=== PATIENT | male | born 1980 | race Hispanic/Latino ===

== ENCOUNTER 2017-06-12 00:36 | Emergency (ER) | payer BC, SELFPAY ==
[2017-06-12 01:03] LABS: #Basophils 0.2 thou/uL (0.0-0.2); #Eosinphils 0.4 thou/uL (0.0-0.7); #Lymphocytes 4.7 thou/uL (1.20-3.40); #Monocytes 0.8 thou/uL (0.11-0.59); #Neutrophils 6.7 thou/uL (1.40-6.50); %Basophils 1.2 % (0.0-1.0); %Eosinophils 3.5 % (0.0-10.0); %Lymphocytes 36.9 % (21.0-51.0); %Monocytes 6.3 % (0.0-10.0); %Neutrophils 52.1 % (42.0-75.0); Hemoglobin 15.6 g/dL (14.0-18.0); Mean Corpuscular HGB CONC 34.5 g/dL (32.0-36.0); Mean Corpuscular Hemoglobin 31.9 pg (27.0-31.0); Mean Corpuscular Volume 92.5 fl (80.0-94.0); Mean Platelet Volume 8.4 fL (7.4-10.4); Platelet Count 277 thou/uL (130-400); RBC Distribution Width 12.1 % (11.5-14.5); Red Blood Cell (RBC) Count 4.88 mill/uL (4.70-6.10); White Blood Cell (WBC) Count 12.8 thou/uL (4.8-10.8)
[2017-06-12 01:25] LABS: ALT (SGPT) 51 U/L (8-55); AST (SGOT) 26 U/L (5-34); Albumin 4.2 g/dL (3.5-5.0); Alkaline Phosphatase 80 U/L (40-150); Anion Gap 11 mmol/L (10-20); BUN (Urea Nitrogen) 13 mg/dL (8.9-20.6); Bilirubin, Total 0.6 mg/dL (0.2-1.2); CK (CPK) 307 U/L (30-200); Calc. Creatinine Clearance 0 mL/min (70-130); Calcium 9.6 mg/dL (7.8-10.44); Carbon Dioxide 30 mmol/L (22-29); Chloride 104 mmol/L (98-107); Estimated GFR-MDRD Greater than 90; Globulin 3.5 g/dL (2.4-3.5); Glucose 103 mg/dL (70-105); Potassium 4.5 mmol/L (3.5-5.1); Protein, Total 7.7 g/dL (6.0-8.3); Sodium 140 mmol/L (136-145)
[2017-06-12 01:27] LABS: CKMB 3.8 ng/mL (0-6.6); Troponin I Less than 0.010 ng/mL (< 0.028)
[2017-06-12 03:26] LABS: Troponin I Less than 0.010 ng/mL (< 0.028)
--- NOTE | 2017-06-12 08:21 | RAD ---
CHEST PA AND LATERAL: Date: 06/12/17 HISTORY: 37-year-old male with chest pain for 1 hour. COMPARISON: 04/01/11. FINDINGS/IMPRESSION: Heart size is normal. The lungs are clear. No pneumonia, edema, pleural effusion, or other acute proc ess. No acute intrathoracic disease. POS: [facility]
== END 2017-06-12 03:45 | disposition home or self-care (01) ==
LOC: ERS 00:36
DX: R07.89 Other chest pain (principal)
CPT/HCPCS: 36415; 71046; 80053; 82553; 84484; 85025; 93005

== ENCOUNTER 2020-02-16 21:01 | Inpatient (IN) | payer OTHER, SELFPAY ==
[2020-02-16 22:10] LABS: Bacteria/HPF None Seen HPF (None Seen); Bilirubin Negative (Negative); Blood, Urine 1+ (Negative); Clarity Turbid (Clear); Glucose, Urine (Dipstick) Normal (Negative); Ketone, Urine 10 mg/dL (Negative); Leukocyte 25 Leu/uL (Negative); Nitrite Negative (Negative); Protein, Urine (Dipstick) 100 mg/dL (Neg-Trace); RBC/HPF 0-3 HPF (0-3); Specific Gravity, Urine 1.036 (1.002-1.036); Squamous Epithelial 0-3 HPF (0-3); pH, Urine 5.5 (5.0-9.0)
[2020-02-16] MEDS ORDERED: Vancomycin 1 GM/200 ML BAG ONE (23:34)
[2020-02-16] MEDS ORDERED: Cefepime 2 GM VIAL ONE (23:34)
[2020-02-16 23:56] LABS: Hemoglobin 14.1 g/dL (14.0-18.0); Mean Corpuscular HGB CONC 33.4 g/dL (32.0-36.0); Mean Corpuscular Hemoglobin 30.8 pg (27.0-31.0); Mean Platelet Volume 9.7 fL (7.4-10.4); Platelet Count 204 thou/uL (130-400); RBC Distribution Width 12.2 % (11.5-14.5); Red Blood Cell (RBC) Count 4.57 mill/uL (4.70-6.10); White Blood Cell (WBC) Count 31.1 thou/uL (4.8-10.8)
[2020-02-17 00:05] LABS: ALT (SGPT) 30 U/L (8-55); AST (SGOT) 15 U/L (5-34); Albumin 3.5 g/dL (3.5-5.0); Alkaline Phosphatase 72 U/L (40-110); Anion Gap 16 mmol/L (10-20); BUN (Urea Nitrogen) 18 mg/dL (8.9-20.6); Bilirubin, Total 0.9 mg/dL (0.2-1.2); Calc. Creatinine Clearance 0 mL/min (70-130); Calcium 8.4 mg/dL (7.8-10.44); Carbon Dioxide 20 mmol/L (22-29); Chloride 104 mmol/L (98-107); Estimated GFR-MDRD 51; Globulin 3.5 g/dL (2.4-3.5); Glucose 121 mg/dL (70-105); Sodium 136 mmol/L (136-145)
[2020-02-17 00:26] LABS: Band 20 % (5-11); Lymphocytes 9 % (21-51); MDiff Complete? YES; Monocytes 5 % (0-10); Neutrophil 65 % (42-75); Platelet Morphology Comment Appears Adequate; RBC Morphology Normal; Reactive Lymphocytes 1 % (0-10); Vacuoles SLIGHT
[2020-02-17] MEDS ORDERED: Ondansetron PF 4 MG/2 ML Vial IVP PRN (01:27)
--- NOTE | 2020-02-17 01:33 | PDOC.HHP ---
Hospitalist HPI - History of Present Illness Painful swollen scrotum History of Present Illness: 40-year-old morbidly obese gentleman with a history of borderline diabetes presented to the emergency department with a complaint of painful swelling of his scrotum. Patient reports rapid swelling, and redness of his scrotum over a period of 2 days. He also reports fever and chills and rigors for which he took ibuprofen. He denies any skin cut or scratches which could be a source of infection. He also denied any penile discharge or dysuria. Ultrasound of the scrotum done in the ED final result is pending. Preliminary suggests scrotal swelling and normal looking testis. Blood work in the emergency department demonstrated severe leukocytosis. Patient meets criteria for sepsis with tachycardia and leukocytosis. ED Course: He was given a shot of IV cefepime and vancomycin in the ED. patient is admitted for further management. Hospitalist ROS - Review of Systems Other: Except as documented, all other systems reviewed and negative. - Medication Medications: Medication Instructions Recorded Confirmed Type Ibuprofen 200 mg PO Q6HR PRN 02/17/20 02/17/20 History Hospitalist History - Past Medical History Other Medical History: Borderline diabetes. - Past Surgical History Other Surgical History: Knee meniscus repair, vasectomy. - Family History Family History: reports: diabetes mellitus (Mother) - Social History Smoking Status: Never smoker Alcohol: reports: None Drugs: reports: none Living Situation: With Family - Exam General Appearance: NAD, awake alert General - other findings: Morbidly obese Eye: PERRL, anicteric sclera ENT: normocephalic atraumatic, no oropharyngeal lesions, moist mucosa Neck: supple, symmetric, no JVD, no thyromegaly Heart: RRR (Tachycardic.), no murmur, no gallops Respiratory: CTAB, no wheezes, no rales, no ronchi Gastrointestinal: soft, non-tender, non-distended, normal bowel sounds, no hepatomegaly, no splenomegaly Extremities: no cyanosis, no edema Skin: normal turgor, no rashes Neurological: cranial nerve grossly intact, no weakness, no focal deficits Musculoskeletal: normal tone, no muscle wasting (Genitourinary: Swollen, edematous and erythematous scrotum.) Hospitalist Results - Labs Result Diagrams: 02/17/20 05:57 02/16/20 23:35 Lab results: WBC 31.1 thou/uL (4.8-10.8) H 02/16/20 23:35 Hgb 14.1 g/dL (14.0-18.0) 02/16/20 23:35 Hct 42.1 % (42.0-52.0) 02/16/20 23:35 MCV 92.0 fL (78.0-98.0) 02/16/20 23:35 Plt Count 204 thou/uL (130-400) 02/16/20 23:35 Band Neuts % (Manual) 20 % (5-11) H 02/16/20 23:35 Sodium 136 mmol/L (136-145) 02/16/20 23:35 Potassium 4.0 mmol/L (3.5-5.1) 02/16/20 23:35 Chloride 104 mmol/L (98-107) 02/16/20 23:35 Carbon Dioxide 20 mmol/L (22-29) L 02/16/20 23:35 BUN 18 mg/dL (8.9-20.6) 02/16/20 23:35 Creatinine 1.51 mg/dL (0.7-1.3) H 02/16/20 23:35 Glucose 121 mg/dL (70-105) H 02/16/20 23:35 Lactic Acid 1.4 mmol/L (0.5-2.2) 02/16/20 23:35 Calcium 8.4 mg/dL (7.8-10.44) 02/16/20 23:35 Total Bilirubin 0.9 mg/dL (0.2-1.2) 02/16/20 23:35 AST 15 U/L (5-34) 02/16/20 23:35 ALT 30 U/L (8-55) 02/16/20 23:35 Alkaline Phosphatase 72 U/L (40-110) 02/16/20 23:35 Serum Total Protein 7.0 g/dL (6.0-8.3) 02/16/20 23:35 Albumin 3.5 g/dL (3.5-5.0) 02/16/20 23:35 Urine Ketones 10 mg/dL (Negative) A 02/16/20 21:47 Urine Blood 1+ (Negative) A 02/16/20 21:47 Urine Nitrite Negative (Negative) 02/16/20 21:47 Ur Leukocyte Esterase 25 Harry/uL (Negative) A 02/16/20 21:47 Urine RBC 0-3 HPF (0-3) 02/16/20 21:47 Urine WBC 7-10 HPF (0-3) A 02/16/20 21:47 Ur Squamous Epith Cells 0-3 HPF (0-3) 02/16/20 21:47 Urine Bacteria None Seen HPF (None Seen) 02/16/20 21:47 Hospitalist H&P A/P - Problem (1) Sepsis Code(s): A41.9 - SEPSIS, UNSPECIFIED ORGANISM Status: Acute (2) Cellulitis of scrotum Code(s): N49.2 - INFLAMMATORY DISORDERS OF SCROTUM Status: Acute (3) Edema of scrotum Code(s): N50.89 - OTHER SPECIFIED DISORDERS OF THE MALE GENITAL ORGANS Status: Acute (4) Acute renal failure Status: Acute (5) Morbid obesity Code(s): E66.01 - MORBID (SEVERE) OBESITY DUE TO EXCESS CALORIES Status: Acute - Plan Plan: Admit to the medical floor. Sepsis protocol initiated in the ED. Lactic acid is within normal limits. Start broad-spectrum IV antibiotics-IV cefepime and vancomycin. Follow blood cultures obtained in the ED. Urology consult depending on progress with the antibiotics. Pain management as needed. Monitor CBC to follow leukocytosis. Monitor renal function. Monitor blood glucose and institute sliding scale as needed.
[2020-02-17 02:11] VITALS: BMI 51.1
[2020-02-17] MEDS ORDERED: Vancomycin 1 GM in Premix Bag 1 BAG IVPB SCH (02:15)
[2020-02-17] MEDS: HYDROcodone/Acetaminophen 5/325 mg Tablet PO PRN ×5 (03:23→23:30)
[2020-02-17] MEDS: Furosemide 40 MG/4 ML VIAL SLOW IVP SCH ×2 (05:15→15:09)
[2020-02-17 06:14] LABS: Hemoglobin 12.7 g/dL (14.0-18.0); Mean Corpuscular HGB CONC 32.3 g/dL (32.0-36.0); Mean Corpuscular Hemoglobin 30.1 pg (27.0-31.0); Mean Corpuscular Volume 93.3 fL (78.0-98.0); Mean Platelet Volume 9.5 fL (7.4-10.4); Platelet Count 196 thou/uL (130-400); RBC Distribution Width 12.2 % (11.5-14.5); Red Blood Cell (RBC) Count 4.23 mill/uL (4.70-6.10); White Blood Cell (WBC) Count 25.1 thou/uL (4.8-10.8)
[2020-02-17 06:36] LABS: Band 30 % (5-11); Lymphocytes 6 % (21-51); MDiff Complete? YES; Metamyelocyte 1 % (0-0); Monocytes 6 % (0-10); Neutrophil 57 % (42-75)
[2020-02-17 06:49] LABS: Anion Gap 12 mmol/L (10-20); BUN (Urea Nitrogen) 16 mg/dL (8.9-20.6); Calc. Creatinine Clearance 191 mL/min (70-130); Calcium 8.2 mg/dL (7.8-10.44); Carbon Dioxide 25 mmol/L (22-29); Chloride 104 mmol/L (98-107); Estimated GFR-MDRD 65; Glucose 113 mg/dL (70-105); Potassium 3.8 mmol/L (3.5-5.1); Sodium 137 mmol/L (136-145)
--- NOTE | 2020-02-17 07:19 | ULT ---
TESTICULAR ULTRASOUND: Date: 02/16/2020 HISTORY: Testicular pain and swelling. FINDINGS: Real-time imaging of the right and left testes performed. The testicles are normal in size. The right testicle measures 4.3 cm and the left testicle measures 4 .4 cm. No testicular mass. Small right epididymal cyst measuring 5.0 mm. Left epididymis is unremarkable. DOPPLER EVALUATION WITH SPECTRAL ANALYSIS: Normal flow is shown to the testes. There is marked scrotal wall thickening which is more right-sided. IMPRESSION: 1. No evidence of testicular mass or torsion. 2. Significant scrotal wall thickening. POS: OFF
[2020-02-17] MEDS: Enoxaparin Sodium 40 MG/0.4 ML SYRINGE SC SCH (08:03)
[2020-02-17] MEDS ORDERED: Cefepime 2 GM in Sodium Chloride 0.9% 100 ML IVPB SCH (11:00)
[2020-02-17] MEDS ORDERED: Vancomycin HCl 1.75 GM in Sodium Chloride 0.9% 500 ML IVPB SCH (12:00)
[2020-02-17] MEDS ORDERED: Meropenem 1 GM in Sodium Chloride 0.9% 100 ML IVPB SCH ×2 (12:00→13:00)
[2020-02-17 12:06] LABS: SARS-CoV-2 MS2 Positive; SARS-CoV-2 N Gene Negative; SARS-CoV-2 S Gene Negative; SARS-CoV-2 by NAA Not Detected (NotDetected); SARS-CoV-2 orf1ab Negative
[2020-02-17] MEDS ORDERED: MEROPENEM 1 GM/50 ML 1 GM in Premix Bag 1 BAG IVPB SCH (13:00)
[2020-02-17] MEDS: MEROPENEM 1 GM/50 ML 1 GM in Premix Bag 1 BAG IVPB SCH ×2 (15:09→23:26)
[2020-02-17] MEDS: Vancomycin HCl 1.75 GM in Sodium Chloride 0.9% 500 ML IVPB SCH ×2 (16:14→23:36)
[2020-02-17] MEDS ORDERED: Acetaminophen 325 MG TAB PO PRN (17:36)
[2020-02-17] MEDS ORDERED: Calcium Carbonate 500 MG ChewTAB PO PRN (17:36)
[2020-02-17] MEDS ORDERED: Ondansetron ODT 4 MG TAB PO PRN (17:36)
[2020-02-17] MEDS ORDERED: Acetaminophen/Codeine 30-300mg Tablet PO PRN (17:40)
[2020-02-17] MEDS ORDERED: Lidocaine 1% w/Epinephrine 1:100K 20 ML VIAL ONE (18:36)
[2020-02-17] MEDS: Ibuprofen 200 MG TAB PO SCH (19:26)
[2020-02-17] MEDS: Senokot S 8.6-50 MG TAB PO SCH (19:27)
--- NOTE | 2020-02-17 19:46 | CON ---
DATE OF CONSULTATION: 02/17/2020 REASON FOR CONSULT: Scrotal cellulitis. HISTORY OF PRESENT ILLNESS: A 40-year-old, history of type 2 diabetes, obesity, developed sudden onset of inflammatory changes in the scrotal skin with swelling and pain over the past 2 days. No headaches. Some chills without documented fever. No cough or sputum production. No chest pain. No abdominal pain. No diarrhea. Still able to void without dysuria. No bleeding. No joint symptoms. MEDICAL HISTORY: Type 2 diabetes and obesity. SOCIAL HISTORY: He works in a [employer] shop. Lives in the area. Never smoker. No alcoholic beverage use. ALLERGIES: NONE. CURRENT MEDICATIONS: 1. Meropenem. 2. Vancomycin. 3. P.r.n. medications. PHYSICAL EXAMINATION: VITAL SIGNS: T-max 99, BP 163, heart rate 103, respiratory rate 20, and O2 saturation 99. SKIN: Scrotal swelling and erythema, more concentrated on the right side. No lymphadenopathy. HEENT: Ocular movements conjugate. Oral cavity normal. NECK: Supple. LUNGS: Symmetric. Clear breath sounds. HEART: S1 and S2. Regular rate. No S3 or S4. ABDOMEN: Soft. Nondistended or tender. No ascites. No bladder distention. EXTREMITIES: No joint inflammatory activity. Moves extremities equally with some limitations because of the scrotal inflammatory change. NEUROLOGIC: Cognitive function appears to be intact. LABORATORY: White cell count 31,000 and 25,000; hemoglobin 12; platelets 196; and 30% bands. Creatinine 1.22, which is improved from admission. Liver profile normal. Albumin 3.5. Urinalysis, with 7 to 10 wbc's. COVID not detected. Ultrasound of the scrotum showed thickened skin, but no testicular mass or torsion. Epididymis unremarkable. ASSESSMENT: 1. Scrotal cellulitis. 2. Diabetes, type 2. DISCUSSION: Although necrotizing fasciitis/Ubaldo's is less likely, I would still have Urology take a look at him, particularly in view of the marked elevation of white cell count. I think this is more likely to reflect just a simple scrotal cellulitis without necrotizing features. Continue meropenem and vancomycin and wait for clinical improvement. Job ID: [id number] MTDD
--- NOTE | 2020-02-17 22:16 | CON ---
DATE OF CONSULTATION: 02/17/2020 REASON FOR CONSULTATION: Scrotal cellulitis. REQUESTING PHYSICIAN: Dakota Griffiths MD HISTORY OF PRESENT ILLNESS: Mr. Rosales is a 40-year-old male with no past urologic history, who presented with a 2-day history of scrotal swelling and pain. He states the pain started on his left side and then progressed to his right, it became very swollen yesterday. He denies any fever, but states he had chills and rigors, for which he took ibuprofen at home. He presented to the [facility] Emergency Department last night, he was found to be afebrile. He had a significant leukocytosis of 35,000. He was tachycardic and ultrasound of the scrotum was performed, which did not demonstrate any abscess. It demonstrated findings consistent with cellulitis and soft tissue edema. Testes were normal. The patient was admitted and started on IV cefepime and vancomycin and Urology was consulted for further evaluation. Currently, the patient states the swelling is stable if not slightly better. He has had no fevers as an inpatient. His chills have resolved. He denies any abrasions to the area, bug bites, etc. No prior episodes. He has had similar episodes on other parts of his body including his left cheek. No other complaints. PAST MEDICAL HISTORY: Borderline diabetes. PAST SURGICAL HISTORY: Knee meniscus repair and vasectomy. FAMILY HISTORY: Noncontributory. SOCIAL HISTORY: No alcohol, tobacco, or illicit drugs. REVIEW OF SYSTEMS: Full 12-point review of systems was performed and is negative other than that mentioned in HPI. PHYSICAL EXAMINATION: GENERAL: He is alert and oriented x3. No apparent distress. HEENT: Normocephalic and atraumatic. NECK: Supple. No masses or lymphadenopathy. CARDIOVASCULAR: Tachycardic, but regular rhythm. PULMONARY: No wheezing. Breathing unlabored. ABDOMEN: Soft, nontender/nondistended. No masses or organomegaly. No suprapubic tenderness to palpation. No CVA tenderness. GENITOURINARY: Severe penoscrotal edema and erythema. Testes not palpable secondary to severe edema. In the posterior scrotum, there is an area of induration and what appears to be the nidus for the infection. There is a small area draining purulent fluid. Cultures were obtained. EXTREMITIES: Warm and well perfused. No edema. NEUROLOGIC: No focal deficits. LABORATORY DATA: White blood cell count 25.1 down from 31.1, hemoglobin 12.7, hematocrit 39.5, and platelets 196. Sodium 137, potassium 3.8, chloride 104, bicarb 25, BUN 16, and creatinine 1.22. Urine shows 7 to 10 white blood cells per high-power field, 0 to 3 red blood cells per high-power field, no bacteria. Scrotal ultrasound demonstrates no evidence of testicular mass or torsion and significant scrotal wall thickening. ASSESSMENT: A 40-year-old male with scrotal cellulitis and scrotal abscess. PLAN: Upon examination of the patient at the bedside, there was an area of the posterior scrotum, which was draining a significant amount of purulent fluid. After informed consent was obtained, the patient elected to proceed with bedside incision and drainage of this abscess. The area was prepped and draped in the usual sterile fashion. A 10 mL of 1% lidocaine with epinephrine was used for local anesthetic block. A cruciate incision was made with a #10 blade scalpel over this area of fluctuance and induration. This immediately resulted in drainage of a significant amount of purulent fluid. A hemostat was used to break up some loculations. The wound tracked a little bit laterally and posteriorly. The wound was copiously irrigated with a mix of sterile saline and Betadine. It was then packed with half-inch packing strip. I recommend [id number] scrotal elevation to keep the scrotum up above the thighs. Continue broad-spectrum antibiotics. Cultures were obtained from the wound and will be pending. Continue to monitor the patient's exam and clinical status for development of additional abscess. Wound Care consult has been placed to perform daily packing changes. Once the patient improves clinically and is comfortable performing wound care, he can be discharged home on p.o. antibiotics. Job ID: [id number]
[2020-02-18] MEDS: HYDROcodone/Acetaminophen 5/325 mg Tablet PO PRN ×2 (06:44→21:39)
[2020-02-18 07:26] LABS: Hemoglobin 13.9 g/dL (14.0-18.0); Mean Corpuscular HGB CONC 32.8 g/dL (32.0-36.0); Mean Corpuscular Hemoglobin 30.8 pg (27.0-31.0); Mean Platelet Volume 9.1 fL (7.4-10.4); Platelet Count 230 thou/uL (130-400); RBC Distribution Width 12.3 % (11.5-14.5); White Blood Cell (WBC) Count 26.2 thou/uL (4.8-10.8)
[2020-02-18 07:37] LABS: Vancomycin, Trough 17.3 ug/mL
[2020-02-18 07:43] LABS: ALT (SGPT) 26 U/L (8-55); AST (SGOT) 13 U/L (5-34); Albumin 3.3 g/dL (3.5-5.0); Alkaline Phosphatase 81 U/L (40-110); Anion Gap 13 mmol/L (10-20); BUN (Urea Nitrogen) 14 mg/dL (8.9-20.6); Bilirubin, Total 0.9 mg/dL (0.2-1.2); Calc. Creatinine Clearance 238 mL/min (70-130); Calcium 8.7 mg/dL (7.8-10.44); Carbon Dioxide 27 mmol/L (22-29); Chloride 100 mmol/L (98-107); Estimated GFR-MDRD 84; Globulin 3.6 g/dL (2.4-3.5); Glucose 116 mg/dL (70-105); Potassium 3.8 mmol/L (3.5-5.1); Protein, Total 6.9 g/dL (6.0-8.3); Sodium 136 mmol/L (136-145)
[2020-02-18] MEDS: MEROPENEM 1 GM/50 ML 1 GM in Premix Bag 1 BAG IVPB SCH ×3 (07:49→23:50)
[2020-02-18 07:54] LABS: CRP (Inflammatory) 33.33 mg/dL (= or < 0.5)
[2020-02-18 08:31] LABS: Band 20 % (5-11); Eosinophils 2 % (0-10); Lymphocytes 8 % (21-51); MDiff Complete? YES; Monocytes 3 % (0-10); Neutrophil 67 % (42-75); Platelet Morphology Comment Appears Adequate; RBC Morphology Normal; Toxic Granulation SLIGHT
[2020-02-18] MEDS: Vancomycin HCl 1.75 GM in Sodium Chloride 0.9% 500 ML IVPB SCH ×2 (08:36→16:38)
[2020-02-18] MEDS: Senokot S 8.6-50 MG TAB PO SCH ×2 (08:38→21:39)
[2020-02-18] MEDS: Ibuprofen 200 MG TAB PO SCH ×3 (08:39→21:39)
[2020-02-18] MEDS: Enoxaparin Sodium 40 MG/0.4 ML SYRINGE SC SCH (08:39)
[2020-02-18] MEDS: Morphine 2 MG/ML VIAL SLOW IVP PRN (10:29)
--- NOTE | 2020-02-18 17:41 | PRG ---
DATE OF SERVICE: 02/18/2020 SUBJECTIVE: The pain has decreased, now he rates at 3/10, still constant pain and he requires medication intermittently. He does not appear in distress. He took a shower today. He was able to walk. Dr. Doss evaluated the patient and found an area of drainage of purulent fluid in the posterior scrotum, so drainage of the abscess was carried out and there was a significant amount of purulent fluid. The wound was irrigated. Scrotal elevation recommended. SUBJECTIVE: VITAL SIGNS: Temperature has been normal. LUNGS: Clear. HEART: S1-S2, regular rate. ABDOMEN: Soft not distended. There is decrease in the amount of swelling and erythema of the scrotum. LABORATORY DATA: White cell count 26.2, hemoglobin 13.9, platelets 230 with 20% neutrophils. The preliminary findings in the scrotal abscess sample with gram-positive cocci in clusters, gram-negative silvano. Gram-positive rods looks like it is a polymicrobial adelso. The identification of susceptibility profile is pending. He is currently on meropenem and vancomycin to be continued. ASSESSMENT AND DISCUSSION: Type 2 diabetes, scrotal abscess with cellulitis, polymicrobial infection is noted which increases the risk of necrotizing process, so they have to continue monitoring closely. May need to repeat surgical debridement in the OR depending on clinical progress. Hopefully, he will improve just with antimicrobials going forward. Job ID: [id number]
--- NOTE | 2020-02-18 18:03 | PRG ---
DATE OF SERVICE: 02/18/2020 SUBJECTIVE: The patient overall is feeling slightly better. He believes the swelling has gone down somewhat. He took a shower this morning. No fever or chills. He has no other complaints. OBJECTIVE: VITAL SIGNS: Temperature 98.2, pulse 76, respirations 18, oxygen saturation 96% on room air, and blood pressure 110/74. GENERAL: He is awake and alert, in no apparent distress. CARDIOVASCULAR: Regular rate and rhythm. PULMONARY: Breathing unlabored. ABDOMEN: Soft, nontender/nondistended. GENITOURINARY: Significant penoscrotal edema. Less erythema. Posterior scrotum with a wound and packing in place. Purulent drainage able to be expressed from this. LABORATORY DATA: White blood cell count 26.2, hemoglobin 13.9, hematocrit 42.3, and platelets 230. Sodium 136, potassium 3.8, chloride 100, bicarb 27, BUN 14, and creatinine 0.98. ASSESSMENT: A 40-year-old male with penoscrotal cellulitis and posterior scrotal abscess, postoperative day #1 status post incision and drainage at bedside. PLAN: The patient's packing was removed this morning. There was a significant amount of purulent drainage able to be expressed. This abscess continues to develop. However, it is being adequately drained through the bedside I and D. The cavity tracks significantly throughout the posterior scrotum. Today, using dissection with the finger as well as with a hemostat, additional loculations were broken up, and all of the purulent fluid was expressed. Packing strip was replaced. A wound care consult has been placed. Clinically, the patient is improving. His white blood cell count increased very slightly. We will continue to monitor this. He has been afebrile. He is no longer tachycardic, and overall, his exam is improved status post I and D. We will continue to follow. Job ID: [id number]
--- NOTE | 2020-02-18 18:15 | PDOC.HOSPP ---
- Subjective Encounter Date: 02/18/20 Encounter Time: 11:00 Subjective: Patient seen and examined for scrotal cellulitis with abscess. Moderate to severe scrotal pain. Denies any fever or chills. - Objective Vital Signs & Weight: Vital Signs (12 hours) Temp Pulse Resp BP Pulse Ox 02/18/20 16:00 98.2 F 78 20 110/74 99 02/18/20 15:38 98.2 F 78 20 110/74 99 02/18/20 12:00 98.2 F 76 20 96/60 96 02/18/20 11:13 98.2 F 76 20 96/60 96 02/18/20 08:00 98.2 F 78 16 98/61 96 02/18/20 07:38 98.2 F 78 16 98/61 98 Weight Admit Weight 377 lb Weight 376 lb 15.847 oz Result Diagrams: 02/18/20 07:03 02/18/20 07:03 Additional Labs: Abnormal Lab Results - Last 48 hrs 02/16/20 21:47: Urine Clarity Turbid A, Urine Protein 100 A, Urine Ketones 10 A, Urine Blood 1+ A, Urine Urobilinogen 2.0 A, Ur Leukocyte Esterase 25 A, Urine WBC 7-10 A 02/16/20 23:35: Carbon Dioxide 20 L, Creatinine 1.51 H, Albumin/Globulin Ratio 1.0 L 02/16/20 23:35: WBC 31.1 H, RBC 4.57 L, Band Neuts % (Manual) 20 H, Lymphocytes % (Manual) 9 L 02/17/20 05:57: WBC 25.1 H, RBC 4.23 L, Hgb 12.7 L, Hct 39.5 L, Band Neuts % (Manual) 30 H, Lymphocytes % (Manual) 6 L, Metamyelocytes % (Man) 1 H 02/18/20 07:03: C-Reactive Protein 33.33 H, Albumin 3.3 L, Globulin 3.6 H, Albumin/Globulin Ratio 0.9 L 02/18/20 07:03: WBC 26.2 H, RBC 4.50 L, Hgb 13.9 L, Band Neuts % (Manual) 20 H, Lymphocytes % (Manual) 8 L Microbiology - Entire Visit 02/17/20 18:59 Scrotum - Abscess Bacterial Culture - Preliminary 02/17/20 18:59 Scrotum - Abscess Anaerobic Culture - Pending 02/16/20 23:35 Venous blood - Left Arm Blood Culture - Preliminary Specimen has been received and culture in progress. No Growth to date. 02/16/20 23:35 Venous blood - Left Hand Blood Culture - Preliminary Specimen has been received and culture in progress. No Growth to date. Radiology Reviewed by me: No (Scrotal ultrasound reviewed) Hospitalist ROS - Review of Systems Respiratory: denies: cough, dry, shortness of breath, hemoptysis, SOB with excertion, pleuritic pain, sputum, wheezing, other Cardiovascular: denies: chest pain, palpitations, orthopnea, paroxysmal noc. dyspnea, edema, light headedness, other - Medication Medications: Active Medications Generic Name Dose Route Start Last Admin Trade Name Freq PRN Reason Stop Dose Admin Hydrocodone Bitart/Acetaminophen 1 tab 02/17/20 01:27 02/18/20 06:44 Hydrocodone/Acetaminophen 5/325 Mg Tablet PO 1 tab Q4H PRN Administration Moderate Pain (4-6) Enoxaparin Sodium 40 mg 02/17/20 09:00 02/18/20 08:39 Enoxaparin Sodium 40 Mg/0.4 Ml Syringe SC 40 mg 0900 SHEREE Administration Meropenem 1 gm/ Device 50 mls @ 100 mls/hr 02/17/20 15:00 02/18/20 15:25 IVPB 50 mls 0700,1500,2300 SHEREE Administration Vancomycin HCl 1.75 gm/ Sodium 500 mls @ 250 mls/hr 02/17/20 16:00 02/18/20 16:38 Chloride IVPB 500 mls 0800,1600,2359 SHEREE Administration Ibuprofen 400 mg 02/17/20 21:00 02/18/20 16:01 Ibuprofen 200 Mg Tab PO 400 mg TID SHEREE Administration Morphine Sulfate 2 mg 02/18/20 07:29 02/18/20 10:29 Morphine 2 Mg/Ml Vial SLOW IVP 02/20/20 07:30 2 mg Q4H PRN Administration Severe Pain (7-10) Senna/Docusate Sodium 2 tab 02/17/20 21:00 02/18/20 08:38 Senokot S 8.6-50 Mg Tab PO 2 tab BID SHEREE Administration - Exam General Appearance: NAD Heart: RRR, no gallops, no rubs, normal peripheral pulses Respiratory: no wheezes, no rales, no ronchi, normal chest expansion Gastrointestinal: soft, non-tender, normal bowel sounds, no palpable masses Gastrointestinal - other findings: Scrotal swelling with significant erythema. Dressing noted Extremities: no cyanosis Psychiatric: normal affect, A&O x 3 Hosp A/P - Plan DVT proph w/SCDs 40-year-old male with obesity and borderline diabetes presented with painful swelling of his scrotum with associated fever and chills of 2 days duration.. Ultrasound was negative for torsion. His work-up was consistent with severe sepsis due to scrotal cellulitis with abscess. Patient was evaluated by infectious disease and urology. He underwent incision and drainage of the scrotal abscess on 02/17. Also had MARY on admission. #Severe sepsis due to scrotal cellulitis with abscess status post incision and drainage (02/16)slowly improving Continue IV vancomycin with meropenem. Monitor vancomycin level. Await culture and sensitivity. ID and urology input appreciated continue wound care. #Acute pain secondary to above. Continue scheduled anti-inflammatory along with morphine/Dafter for pain control. Add bowel regimen. #Morbid obesity with a BMI 51.1 Lifestyle modification emphasized #Borderline diabetes Check hemoglobin A1c #MARY due to sepsisimproving #Discharge planningpatient will require 2-3 more days for stabilization and need for IV antibiotics.
[2020-02-18] MEDS ORDERED: Acetaminophen 325 MG TAB PO SCH (21:00)
[2020-02-19] MEDS: Vancomycin HCl 1.75 GM in Sodium Chloride 0.9% 500 ML IVPB SCH ×4 (00:12→23:28)
[2020-02-19] MEDS: MEROPENEM 1 GM/50 ML 1 GM in Premix Bag 1 BAG IVPB SCH ×3 (06:27→22:51)
[2020-02-19] MEDS: HYDROcodone/Acetaminophen 5/325 mg Tablet PO PRN ×3 (06:28→20:08)
[2020-02-19 06:50] LABS: Hemoglobin 12.8 g/dL (14.0-18.0); Mean Corpuscular HGB CONC 32.2 g/dL (32.0-36.0); Mean Corpuscular Hemoglobin 30.6 pg (27.0-31.0); Mean Corpuscular Volume 94.8 fL (78.0-98.0); Mean Platelet Volume 8.5 fL (7.4-10.4); Platelet Count 246 thou/uL (130-400); RBC Distribution Width 12.2 % (11.5-14.5); White Blood Cell (WBC) Count 16.4 thou/uL (4.8-10.8)
[2020-02-19 07:08] LABS: Hemoglobin A1c 5.3 % (4.0-6.0)
[2020-02-19 07:20] LABS: Band 19 % (5-11); Eosinophils 4 % (0-10); Lymphocytes 15 % (21-51); MDiff Complete? YES; Monocytes 9 % (0-10); Neutrophil 53 % (42-75); Platelet Morphology Comment Appears Adequate; RBC Morphology Normal
[2020-02-19 07:21] LABS: ALT (SGPT) 36 U/L (8-55); AST (SGOT) 30 U/L (5-34); Albumin 3.1 g/dL (3.5-5.0); Alkaline Phosphatase 84 U/L (40-110); Anion Gap 12 mmol/L (10-20); BUN (Urea Nitrogen) 12 mg/dL (8.9-20.6); Bilirubin, Total 0.5 mg/dL (0.2-1.2); Calc. Creatinine Clearance 295 mL/min (70-130); Calcium 8.7 mg/dL (7.8-10.44); Carbon Dioxide 30 mmol/L (22-29); Chloride 101 mmol/L (98-107); Estimated GFR-MDRD Greater than 90; Globulin 3.5 g/dL (2.4-3.5); Glucose 100 mg/dL (70-105); Potassium 4.2 mmol/L (3.5-5.1); Protein, Total 6.6 g/dL (6.0-8.3); Sodium 139 mmol/L (136-145)
[2020-02-19] MEDS: Morphine 2 MG/ML VIAL SLOW IVP PRN ×2 (07:23→15:45)
--- NOTE | 2020-02-19 08:25 | PRG ---
DATE OF SERVICE: 02/19/2020 SUBJECTIVE: The patient is feeling slightly better. No fevers. Wound Care came by yesterday. However, they did not perform a dressing change, given the fact that I had just done it. They did not come by yesterday afternoon. The patient has been ambulating. Pain is improved. OBJECTIVE: VITAL SIGNS: Temperature 98, pulse 70, respirations 16, oxygen saturation 100% on room air, blood pressure 116/69. GENERAL: He is awake and alert, no apparent distress. CARDIOVASCULAR: Regular rate and rhythm. PULMONARY: Breathing unlabored. ABDOMEN: Soft, nontender/nondistended. GENITOURINARY: 3+ penoscrotal edema. Less erythema. Wound with packing in place. Less purulent drainage. EXTREMITIES: Warm and well perfused. No edema. LABORATORY DATA: White blood cell count 16.4 down from 26.2. Micro; wound culture growing Staph with resistance to amoxicillin, azithromycin, clarithromycin, and erythromycin. ASSESSMENT: A 40-year-old male with scrotal cellulitis and scrotal abscess, status post I and D. PLAN: At the bedside this morning, the packing was removed. Few other loculations were digitally broken up and a small amount of purulent drainage was expressed. Iodoform gauze packing was used to re-dress the wound. Continue wound care. Wound Care should perform dressing change late in the day today with removal and replacement of packing. Reinforced to the patient that when he is in bed, he should keep his scrotum propped up above his thighs to help with the edema. White blood cell count is now improving. Continue wound care. Job ID: [id number]
[2020-02-19] MEDS: Ibuprofen 200 MG TAB PO SCH ×3 (09:53→22:51)
[2020-02-19] MEDS: Senokot S 8.6-50 MG TAB PO SCH ×2 (09:53→20:08)
[2020-02-19] MEDS: Famotidine 20 MG TAB PO SCH ×2 (09:53→20:08)
[2020-02-19] MEDS: Enoxaparin Sodium 40 MG/0.4 ML SYRINGE SC SCH (09:54)
--- NOTE | 2020-02-19 15:35 | PDOC.HOSPP ---
- Subjective Encounter Date: 02/19/20 Encounter Time: 10:00 Subjective: Patient seen and examined for scrotal cellulitis with abscess. Still has moderate amount of pain. No fever or chills. - Objective Vital Signs & Weight: Vital Signs (12 hours) Temp Pulse Resp BP Pulse Ox 02/19/20 11:47 98.4 F 89 20 119/69 97 02/19/20 08:00 98.5 F 81 20 121/76 98 Weight Admit Weight 377 lb Weight 376 lb 15.847 oz Result Diagrams: 02/19/20 06:28 02/19/20 06:28 Additional Labs: Abnormal Lab Results - Last 48 hrs 02/18/20 07:03: C-Reactive Protein 33.33 H, Albumin 3.3 L, Globulin 3.6 H, Albumin/Globulin Ratio 0.9 L 02/18/20 07:03: WBC 26.2 H, RBC 4.50 L, Hgb 13.9 L, Band Neuts % (Manual) 20 H, Lymphocytes % (Manual) 8 L 02/19/20 06:28: Carbon Dioxide 30 H, Albumin 3.1 L, Albumin/Globulin Ratio 0.9 L 02/19/20 06:28: WBC 16.4 H, RBC 4.20 L, Hgb 12.8 L, Hct 39.8 L, Band Neuts % (Manual) 19 H, Lymphocytes % (Manual) 15 L Microbiology - Entire Visit 02/16/20 23:35 Venous blood - Left Arm Blood Culture - Preliminary NO GROWTH AT 48 HOURS 02/16/20 23:35 Venous blood - Left Hand Blood Culture - Preliminary NO GROWTH AT 48 HOURS 02/17/20 18:59 Scrotum - Abscess Bacterial Culture - Preliminary Staphylococcus aureus 02/17/20 18:59 Scrotum - Abscess Anaerobic Culture - Pending Hospitalist ROS - Review of Systems Respiratory: denies: cough, dry, shortness of breath, hemoptysis, SOB with excertion, pleuritic pain, sputum, wheezing, other Cardiovascular: denies: chest pain, palpitations, orthopnea, paroxysmal noc. dyspnea, edema, light headedness, other - Medication Medications: Active Medications Generic Name Dose Route Start Last Admin Trade Name Freq PRN Reason Stop Dose Admin Hydrocodone Bitart/Acetaminophen 1 tab 02/17/20 01:27 02/19/20 11:37 Hydrocodone/Acetaminophen 5/325 Mg Tablet PO 1 tab Q4H PRN Administration Moderate Pain (4-6) Enoxaparin Sodium 40 mg 02/17/20 09:00 02/19/20 09:54 Enoxaparin Sodium 40 Mg/0.4 Ml Syringe SC 40 mg 0900 SHEREE Administration Famotidine 20 mg 02/19/20 09:00 02/19/20 09:53 Famotidine 20 Mg Tab PO 20 mg BID SHEREE Administration Meropenem 1 gm/ Device 50 mls @ 100 mls/hr 02/17/20 15:00 02/19/20 15:03 IVPB 50 mls 0700,1500,2300 SHEREE Administration Vancomycin HCl 1.75 gm/ Sodium 500 mls @ 250 mls/hr 02/17/20 16:00 02/19/20 09:53 Chloride IVPB 500 mls 0800,1600,2359 SHEREE Administration Ibuprofen 400 mg 02/17/20 21:00 02/19/20 15:03 Ibuprofen 200 Mg Tab PO 400 mg TID SHEREE Administration Morphine Sulfate 2 mg 02/18/20 07:29 02/19/20 07:23 Morphine 2 Mg/Ml Vial SLOW IVP 02/20/20 07:30 2 mg Q4H PRN Administration Severe Pain (7-10) Senna/Docusate Sodium 2 tab 02/17/20 21:00 02/19/20 09:53 Senokot S 8.6-50 Mg Tab PO 2 tab BID SHEREE Administration - Exam General Appearance: NAD (At rest) Heart: RRR, no gallops Respiratory: no wheezes, no ronchi Gastrointestinal: non-tender, non-distended, normal bowel sounds Gastrointestinal - other findings: Scrotal erythema/swellingimproving Extremities: no cyanosis Psychiatric: A&O x 3 Hosp A/P - Plan DVT proph w/SCDs 40-year-old male with obesity and borderline diabetes presented with painful swelling of his scrotum with associated fever and chills of 2 days duration.. Ultrasound was negative for torsion. His work-up was consistent with severe sepsis due to scrotal cellulitis with abscess. Patient was evaluated by infe ctious disease and urology. He underwent incision and drainage of the scrotal abscess on 02/17. Also had MARY on admission. #Severe sepsis due to scrotal cellulitis with abscess status post incision and drainage (02/16)slowly improving Continue IV vancomycin with meropenem with vancomycin level monitoring. Sensitivities pending. Continue wound care. Scrotal elevation. #Acute pain secondary to above. Continue scheduled anti-inflammatory along with as needed morphine/[place] for pain control. Add bowel regimen. #Morbid obesity with a BMI 51.1 Lifestyle modification emphasized #Borderline diabetes -A1c 5.3 #MARY due to sepsisimproving #DVT prophylaxis Continue Lovenox 40 mg daily #Discharge planningpatient will require 2-3 more days for stabilization and need for IV antibiotics.
[2020-02-20 06:08] LABS: Anion Gap 12 mmol/L (10-20); BUN (Urea Nitrogen) 10 mg/dL (8.9-20.6); Calc. Creatinine Clearance 298 mL/min (70-130); Calcium 8.4 mg/dL (7.8-10.44); Carbon Dioxide 27 mmol/L (22-29); Chloride 103 mmol/L (98-107); Estimated GFR-MDRD Greater than 90; Glucose 93 mg/dL (70-105); Potassium 3.9 mmol/L (3.5-5.1); Sodium 138 mmol/L (136-145)
[2020-02-20] MEDS: MEROPENEM 1 GM/50 ML 1 GM in Premix Bag 1 BAG IVPB SCH ×3 (06:32→22:45)
[2020-02-20] MEDS: HYDROcodone/Acetaminophen 5/325 mg Tablet PO PRN ×3 (06:36→17:26)
[2020-02-20 06:40] LABS: Band 20 % (5-11); Eosinophils 5 % (0-10); Hemoglobin 12.7 g/dL (14.0-18.0); Lymphocytes 18 % (21-51); MDiff Complete? YES; Mean Corpuscular HGB CONC 33.4 g/dL (32.0-36.0); Mean Platelet Volume 8.5 fL (7.4-10.4); Metamyelocyte 1 % (0-0); Monocytes 12 % (0-10); Neutrophil 44 % (42-75); Platelet Count 299 thou/uL (130-400); Platelet Morphology Comment Appears Adequate; RBC Distribution Width 12.3 % (11.5-14.5); Red Blood Cell (RBC) Count 4.08 mill/uL (4.70-6.10)
[2020-02-20 07:15] LABS: Vancomycin, Trough 15.4 ug/mL
--- NOTE | 2020-02-20 08:10 | PRG ---
DATE OF SERVICE: 02/20/2020 SUBJECTIVE: The patient continues to improve. Reports less pain. States the scrotum is not as swollen. No fever or chills. He has been ambulating. Wound Care evaluated the patient yesterday. No complaints. OBJECTIVE: VITAL SIGNS: Temperature is 98.4, pulse 80s to 90s, respiration 18, oxygen saturation 99% on room air, and blood pressure 151/79. GENERAL: He is awake and alert, in no apparent distress. CARDIOVASCULAR: Regular rate and rhythm. PULMONARY: Breathing unlabored. ABDOMEN: Soft, obese, nontender/nondistended. GENITOURINARY: Penoscrotal edema with minimal erythema, mild induration. Posterior scrotal wound with packing in place. No purulent drainage. Some serosanguineous drainage. EXTREMITIES: Warm and well perfused. No edema. LABORATORY DATA: White blood cell count 15.0, down from 16.4; hemoglobin 12.7; hematocrit 38.0; platelets 299. ASSESSMENT: A 40-year-old male with penile scrotal cellulitis and scrotal abscess, status post incision and drainage. PLAN: The patient is to continue b.i.d. dry gauze packing dressing changes. Wound Care to educate family on how to assist with this. His leukocytosis is improving. He has been afebrile. He should continue a course of oral antibiotics once he is stable for discharge. Over the weekend, Dr. Serrano will be covering and if the patient remains inpatient, we will resume care on Sunday. Job ID: [id number]
[2020-02-20] MEDS: Famotidine 20 MG TAB PO SCH ×2 (08:45→20:52)
[2020-02-20] MEDS: Vancomycin HCl 1.75 GM in Sodium Chloride 0.9% 500 ML IVPB SCH ×3 (08:45→23:22)
[2020-02-20] MEDS: Ibuprofen 200 MG TAB PO SCH ×3 (08:45→20:52)
[2020-02-20] MEDS: Senokot S 8.6-50 MG TAB PO SCH ×2 (08:45→20:53)
[2020-02-20] MEDS: Enoxaparin Sodium 40 MG/0.4 ML SYRINGE SC SCH (08:46)
--- NOTE | 2020-02-20 19:21 | PDOC.HOSPP ---
- Subjective Encounter Date: 02/20/20 Encounter Time: 09:00 Subjective: Patient seen and examined for scrotal cellulitis/abscess. Pain controlled on current regimen. Denies any dysuria or hematuria. - Objective Vital Signs & Weight: Vital Signs (12 hours) Temp Pulse Resp BP Pulse Ox 02/20/20 16:00 98.3 F 74 16 163/84 H 94 L 02/20/20 11:31 98.5 F 79 16 141/77 H 98 02/20/20 08:00 98 02/20/20 07:31 98.5 F 81 16 146/84 H 98 Weight Admit Weight 377 lb Weight 376 lb 15.847 oz I&O: 02/19/20 02/20/20 02/21/20 06:59 06:59 06:59 Intake Total 2009 Result Diagrams: 02/20/20 05:12 02/20/20 05:12 Additional Labs: Abnormal Lab Results - Last 48 hrs 02/19/20 06:28: Carbon Dioxide 30 H, Albumin 3.1 L, Albumin/Globulin Ratio 0.9 L 02/19/20 06:28: WBC 16.4 H, RBC 4.20 L, Hgb 12.8 L, Hct 39.8 L, Band Neuts % (Manual) 19 H, Lymphocytes % (Manual) 15 L 02/20/20 05:12: WBC 15.0 H, RBC 4.08 L, Hgb 12.7 L, Hct 38.0 L, Band Neuts % (Manual) 20 H, Lymphocytes % (Manual) 18 L, Monocytes % (Manual) 12 H, Metamyelocytes % (Man) 1 H Microbiology - Entire Visit 02/17/20 18:59 Scrotum - Abscess Bacterial Culture - Preliminary Staphylococcus aureus 02/17/20 18:59 Scrotum - Abscess Anaerobic Culture - Preliminary 02/16/20 23:35 Venous blood - Left Arm Blood Culture - Preliminary NO GROWTH AT 48 HOURS 02/16/20 23:35 Venous blood - Left Hand Blood Culture - Preliminary NO GROWTH AT 48 HOURS Hospitalist ROS - Review of Systems Respiratory: denies: cough, dry, shortness of breath, hemoptysis, SOB with excertion, pleuritic pain, sputum, wheezing, other Cardiovascular: denies: chest pain, palpitations, orthopnea, paroxysmal noc. dyspnea, edema, light headedness, other - Medication Medications: Active Medications Generic Name Dose Route Start Last Admin Trade Name Freq PRN Reason Stop Dose Admin Hydrocodone Bitart/Acetaminophen 1 tab 02/17/20 01:27 02/20/20 17:26 Hydrocodone/Acetaminophen 5/325 Mg Tablet PO 1 tab Q4H PRN Administration Moderate Pain (4-6) Enoxaparin Sodium 40 mg 02/17/20 09:00 02/20/20 08:46 Enoxaparin Sodium 40 Mg/0.4 Ml Syringe SC 40 mg 0900 SHEREE Administration Famotidine 20 mg 02/19/20 09:00 02/20/20 08:45 Famotidine 20 Mg Tab PO 20 mg BID SHEREE Administration Meropenem 1 gm/ Device 50 mls @ 100 mls/hr 02/17/20 15:00 02/20/20 14:42 IVPB 50 mls 0700,1500,2300 SHEREE Administration Vancomycin HCl 1.75 gm/ Sodium 500 mls @ 250 mls/hr 02/17/20 16:00 02/20/20 17:21 Chloride IVPB 500 mls 0800,1600,2359 SHEREE Administration Ibuprofen 400 mg 02/17/20 21:00 02/20/20 14:42 Ibuprofen 200 Mg Tab PO 400 mg TID SHEREE Administration Morphine Sulfate 2 mg 02/18/20 07:29 02/19/20 15:45 Morphine 2 Mg/Ml Vial SLOW IVP 02/23/20 07:30 2 mg Q4H PRN Administration Severe Pain (7-10) Senna/Docusate Sodium 2 tab 02/17/20 21:00 02/20/20 08:45 Senokot S 8.6-50 Mg Tab PO 2 tab BID SHEREE Administration - Exam General Appearance: NAD Neck: supple, no JVD Heart: RRR, no gallops Respiratory: no wheezes, no ronchi Gastrointestinal: soft, non-distended, normal bowel sounds Gastrointestinal - other findings: Improving scrotal swelling/erythema Extremities: no cyanosis Neurological: no new deficit Hosp A/P - Plan DVT proph w/lovenox, DVT proph w/SCDs 40-year-old male with obesity and borderline diabetes presented with painful swelling of his scrotum with associated fever and chills of 2 days duration.. Ultrasound was negative for torsion. His work-up was consistent with severe sepsis due to scrotal cellulitis with abscess. Patient was evaluated by infectious disease and urology. He underwent incision and drainage of the scrotal abscess on 02/17. Also had MARY on admission. #Severe sepsis due to scrotal cellulitis with Staphylococcus abscess status post incision and drainage (02/16)slowly improving Continue IV vancomycin with meropenem. Monitor vancomycin level. Will discuss with infectious disease on antibiotic adjustment based on the cultures. Continue wound care. Continue scrotal elevation. #Acute pain secondary to above. Continue scheduled anti-inflammatory along with as needed morphine/[place] for pain control. #Morbid obesity with a BMI 51.1 Lifestyle modification emphasized #Borderline diabetes -A1c 5.3 Counseled on lifestyle modification #MARY due to sepsisimproving #DVT prophylaxis Continue Lovenox 40 mg daily #Discharge planningpatient will require 2-3 more days for stabilization and need for IV antibiotics.
[2020-02-21 06:18] LABS: Band 5 % (5-11); Eosinophils 5 % (0-10); Hemoglobin 12.8 g/dL (14.0-18.0); Lymphocytes 15 % (21-51); MDiff Complete? YES; Mean Corpuscular HGB CONC 32.7 g/dL (32.0-36.0); Mean Corpuscular Hemoglobin 30.3 pg (27.0-31.0); Mean Corpuscular Volume 92.7 fL (78.0-98.0); Mean Platelet Volume 7.9 fL (7.4-10.4); Monocytes 5 % (0-10); Neutrophil 70 % (42-75); Platelet Count 343 thou/uL (130-400); Platelet Morphology Comment Appears Adequate; RBC Distribution Width 12.3 % (11.5-14.5); RBC Morphology Normal; Red Blood Cell (RBC) Count 4.23 mill/uL (4.70-6.10); White Blood Cell (WBC) Count 15.9 thou/uL (4.8-10.8)
[2020-02-21] MEDS: MEROPENEM 1 GM/50 ML 1 GM in Premix Bag 1 BAG IVPB SCH ×2 (06:18→16:11)
[2020-02-21 06:22] LABS: Anion Gap 10 mmol/L (10-20); BUN (Urea Nitrogen) 8 mg/dL (8.9-20.6); Calc. Creatinine Clearance 310 mL/min (70-130); Calcium 8.6 mg/dL (7.8-10.44); Carbon Dioxide 28 mmol/L (22-29); Chloride 104 mmol/L (98-107); Estimated GFR-MDRD Greater than 90; Glucose 98 mg/dL (70-105); Potassium 4.2 mmol/L (3.5-5.1); Sodium 138 mmol/L (136-145)
[2020-02-21 07:24] LABS: Vancomycin, Trough 15.3 ug/mL
[2020-02-21] MEDS: Morphine 2 MG/ML VIAL SLOW IVP PRN (08:38)
[2020-02-21] MEDS: Famotidine 20 MG TAB PO SCH ×2 (09:34→21:19)
[2020-02-21] MEDS: Vancomycin HCl 1.75 GM in Sodium Chloride 0.9% 500 ML IVPB SCH (09:34)
[2020-02-21] MEDS: Senokot S 8.6-50 MG TAB PO SCH ×2 (09:34→21:19)
[2020-02-21] MEDS: HYDROcodone/Acetaminophen 5/325 mg Tablet PO PRN (09:35)
[2020-02-21] MEDS: Ibuprofen 200 MG TAB PO SCH ×3 (09:35→21:19)
[2020-02-21] MEDS: Enoxaparin Sodium 40 MG/0.4 ML SYRINGE SC SCH (09:35)
--- NOTE | 2020-02-21 13:02 | PRG ---
DATE OF SERVICE: 02/21/2020 SUBJECTIVE: The patient states he is feeling okay. He still has some pain and discomfort in the scrotal area, but states it is better than it was before he had the incision and drainage. He continues to have a lot of swelling. He states the nurses are currently doing dressing changes once a day. Denies any fevers. OBJECTIVE: VITAL SIGNS: Temperature 97.9, pulse 79, respirations 16, blood pressure 127/72, and saturations 99% on room air. GENERAL: No apparent distress. Morbidly obese, communicative, and alert. CARDIOVASCULAR: Regular rate and rhythm. ABDOMEN: Soft, nontender, and nondistended. No tracking cellulitis onto the abdomen. Obesity precludes palpation of inner abdominal contents. : Penis is buried secondary to significant scrotal edema. There is severe scrotal edema with significant erythema and skin dryness. There is good capillary refill on the scrotal skin. The posterior scrotum shows packing, which is currently in place. There is still serous drainage coming out from around the packing, which is likely edema fluid. No evidence of crepitus. No current evidence of necrotizing fasciitis. EXTREMITIES: No clubbing, cyanosis, or edema. There is onychomycosis of the lower extremity nails. LABORATORY EVALUATION: The full set of labs are in the [employer] system, which I have reviewed. Of note, the patient's white count today is 15.9, which has mildly increased from 15 yesterday. Creatinine is 0.75. Microbiology from the scrotal abscess is demonstrating Staphylococcus aureus, which is sensitive to the patient's current antibiotic regimen. ASSESSMENT AND PLAN: A 40-year-old male with diabetes mellitus type 2, obesity, and significant scrotal abscess, status post I and D by Dr. Doss performed on February 16. His scrotum is still significantly edematous with significant erythema and tenderness. I would like to repeat a scrotal ultrasound at this time as the edema is precluding any proper evaluation of the inner scrotal contents. If there is only wall edema alone, I would not recommend any further surgical intervention unless there is a clear abscess delineated on physical exam. If there is a significant fluid collection within the scrotum, the patient may require another incision and drainage to remove this fluid. A wound VAC would be significantly beneficial for this individual to remove the scrotal edema. However, he will probably not qualify for outpatient wound VAC secondary to his lacking of insurance. For now, I think the dressing changes are appropriate and should be increased to b.i.d. instead of once a day. I will continue to follow the patient and see him tomorrow until Dr. Doss resumes care on Sunday. Job ID: [id number]
[2020-02-21] MEDS: CEFAZOLIN 2 GM in Premix Bag 1 BAG IVPB SCH (17:52)
--- NOTE | 2020-02-21 18:03 | ULT ---
Scrotal ultrasound: 02/21/2020 COMPARISON:02/16/2020 HISTORY:Infection, pain, recent irrigation and debridement of the scrotum TECHNIQUE: Multiplanar grayscale sonographic imaging of thescrotal contents with Doppler interrogatio n of the testicles including color flow and spectral analysis FINDINGS:There is diffuse soft tissue swelling involving the scrotum, right greater than left. There is irregularly marginated hypoechoic soft tissue abnormality near the region of the base of the penis which is difficult to measure given size and ill-defined nature. This measures at least 5.1 x 3 .3 x 5.9 cm. This does not demonstrate findings consistent with a discrete drainable abscess but the masslike hypoechoic nature of this abnormality suggest a scrotal wall phlegmon. Questionable foci of increased echogenicity in this region may represent tiny areas of gas which could be associated with prior invasive procedure given history of recent surgery. Ubaldo's gangrene is a possibility i n the proper clinical setting. The epididymis is prominent and slightly hypervascular bilaterally, which may signify bilateral epidi dymitis. No evidence for orchitis. No intratesticular mass. Testicles demonstrate normal symmetric blood flow. Left testicle measures 4.1 x 2.9 x 2.9 cm and right testicle measures 4.5 x 3.0 x 3.0 cm. IMPRESSION:Diffuse prominent scrotal wall swelling with focal area of irregular decreased echogenicit y suggesting phlegmon as detailed above. 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 CT may be beneficial if clinica lly warranted. Probable bilateral epididymitis.
--- NOTE | 2020-02-21 20:47 | PDOC.HOSPP ---
- Subjective Encounter Date: 02/21/20 Encounter Time: 11:00 Subjective: Patient seen and examined for sepsis due to scrotal cellulitis/abscess. Pain controlled. No fever or chills. No dysuria/hematuria or abdominal discomfort reported. - Objective Vital Signs & Weight: Weight Admit Weight 377 lb Weight 376 lb 15.847 oz I&O: 02/20/20 02/21/20 02/22/20 06:59 06:59 06:59 Intake Total 2009 1919 Balance 2009 1919 Result Diagrams: 02/21/20 05:36 02/21/20 05:36 Hospitalist ROS - Review of Systems Respiratory: denies: cough, dry, shortness of breath, hemoptysis, SOB with excertion, pleuritic pain, sputum, wheezing, other Cardiovascular: denies: chest pain, palpitations, orthopnea, paroxysmal noc. dyspnea, edema, light headedness, other - Medication Medications: Active Medications Generic Name Dose Route Start Last Admin Trade Name Freq PRN Reason Stop Dose Admin Hydrocodone Bitart/Acetaminophen 1 tab 02/17/20 01:27 02/21/20 09:35 Hydrocodone/Acetaminophen 5/325 Mg Tablet PO 1 tab Q4H PRN Administration Moderate Pain (4-6) Enoxaparin Sodium 40 mg 02/17/20 09:00 02/21/20 09:35 Enoxaparin Sodium 40 Mg/0.4 Ml Syringe SC 40 mg 0900 SHEREE Administration Famotidine 20 mg 02/19/20 09:00 02/21/20 09:34 Famotidine 20 Mg Tab PO 20 mg BID SHEREE Administration Cefazolin Sodium/Dextrose 2 gm 50 mls @ 100 mls/hr 02/21/20 17:00 02/21/20 17:52 / Device IVPB 50 mls 0100,0900,1700 SHEREE Administration Ibuprofen 400 mg 02/17/20 21:00 02/21/20 16:04 Ibuprofen 200 Mg Tab PO 400 mg TID SHEREE Administration Morphine Sulfate 2 mg 02/18/20 07:29 02/21/20 08:38 Morphine 2 Mg/Ml Vial SLOW IVP 02/23/20 07:30 2 mg Q4H PRN Administration Severe Pain (7-10) Senna/Docusate Sodium 2 tab 02/17/20 21:00 02/21/20 09:34 Senokot S 8.6-50 Mg Tab PO Not Given BID SHEREE - Exam General Appearance: NAD Neck: supple Heart: RRR, no gallops Respiratory: CTAB, no rales Gastrointestinal: non-tender, normal bowel sounds Gastrointestinal - other findings: Scrotal erythema/swellingslowly improving Extremities: no cyanosis Neurological: no new deficit Hosp A/P - Plan 40-year-old male with obesity and borderline diabetes presented with painful swelling of his scrotum with associated fever and chills of 2 days duration.. Ultrasound was negative for torsion. His work-up was consistent with severe sepsis due to scrotal cellulitis with abscess. Patient was evaluated by infectious disease and urology. He underwent incision and drainage of the scrotal abscess on 02/17. Also had MARY on admission. #Severe sepsis due to scrotal cellulitis with Staphylococcus abscess status post incision and drainage (02/16)slowly improving #Acute pain secondary to above. #Morbid obesity with a BMI 51.1 #Borderline diabetes -A1c 5.3 #MARY due to sepsisimproving #DVT prophylaxis Plan: Case discussed with infectious disease. Will discontinue vancomycin and meropenem. Start him on Ancef along with oral Flagyl. Continue IV morphine for pain control. Recheck labs in a.m. continue other medications as above
[2020-02-21] MEDS: metroNIDAZOLE 500 MG TAB PO SCH (21:19)
[2020-02-22] MEDS: CEFAZOLIN 2 GM in Premix Bag 1 BAG IVPB SCH ×3 (01:15→16:36)
[2020-02-22 06:29] LABS: #Basophils 0.1 thou/uL (0.0-0.2); #Eosinphils 0.5 thou/uL (0.0-0.7); #Lymphocytes 2.2 thou/uL (1.20-3.40); #Monocytes 1.2 thou/uL (0.11-0.59); %Basophils 0.6 % (0.0-1.0); %Eosinophils 3.9 % (0.0-10.0); %Lymphocytes 15.6 % (21.0-51.0); %Monocytes 8.5 % (0.0-10.0); %Neutrophils 71.4 % (42.0-75.0); Hemoglobin 12.8 g/dL (14.0-18.0); Mean Corpuscular HGB CONC 32.8 g/dL (32.0-36.0); Mean Corpuscular Hemoglobin 30.6 pg (27.0-31.0); Mean Corpuscular Volume 93.4 fL (78.0-98.0); Mean Platelet Volume 7.7 fL (7.4-10.4); Platelet Count 389 thou/uL (130-400); RBC Distribution Width 12.3 % (11.5-14.5)
[2020-02-22 06:53] LABS: Anion Gap 11 mmol/L (10-20); BUN (Urea Nitrogen) 11 mg/dL (8.9-20.6); Calc. Creatinine Clearance 337 mL/min (70-130); Calcium 8.2 mg/dL (7.8-10.44); Carbon Dioxide 25 mmol/L (22-29); Chloride 105 mmol/L (98-107); Estimated GFR-MDRD Greater than 90; Glucose 86 mg/dL (70-105); Sodium 137 mmol/L (136-145)
[2020-02-22] MEDS: Morphine 2 MG/ML VIAL SLOW IVP PRN (06:53)
[2020-02-22] MEDS: Famotidine 20 MG TAB PO SCH ×2 (09:41→21:24)
[2020-02-22] MEDS: metroNIDAZOLE 500 MG TAB PO SCH ×3 (09:41→21:24)
[2020-02-22] MEDS: Ibuprofen 200 MG TAB PO SCH ×3 (09:41→21:24)
[2020-02-22] MEDS: Enoxaparin Sodium 40 MG/0.4 ML SYRINGE SC SCH (09:41)
[2020-02-22] MEDS: Senokot S 8.6-50 MG TAB PO SCH ×2 (09:42→21:24)
[2020-02-22] MEDS: HYDROcodone/Acetaminophen 5/325 mg Tablet PO PRN (09:43)
[2020-02-22] MEDS ORDERED: Labetalol HCl 100 MG/20 ML VIAL ONE (12:15)
--- NOTE | 2020-02-22 13:04 | PRG ---
DATE OF SERVICE: 02/22/2020 SUBJECTIVE: The patient states he is feeling significantly better. He underwent a scrotal ultrasound yesterday, which showed a significant 5-cm phlegmon, which may have been accumulating on the anterior scrotum towards the base of the penis. After the ultrasound, the patient reported he had rupture with a significant amount of purulent drainage come out of his anterior scrotum. After this, his pain decreased considerably and he states he is feeling a lot better today. He now has wound packing in this anterior scrotal area. OBJECTIVE: VITAL SIGNS: Temperature 97.7, pulse 76, respirations 20, blood pressure 123/76, and saturation 97% on room air. GENERAL: No apparent distress. Communicative and alert. CARDIOVASCULAR: Regular rate and rhythm. ABDOMEN: Obese, nontender, nondistended. GENITOURINARY: Penis is buried, difficult to visualize. Scrotum is significantly erythematous, but looks somewhat smaller than it did yesterday. It is also softer and less tense. There is a new opening on the anterior scrotum, which is now packed. The patient has less tenderness. There is no crepitus or evidence of skin necrosis. Skin looks better with moisturizing cream. There is good and excellent capillary refill to all over the scrotum. The posterior scrotal drain site is packed. EXTREMITIES: No edema. LABORATORY EVALUATION: Full set of labs are in the [employer] system, which I have reviewed. Of note, the patient's white count is decreased down back to 14 and hemoglobin 12.8. Creatinine of 0.69 and glucose of 86. Ultrasound reviewed, demonstrates prominent scrotal wall edema with irregular, decreased echogenic area, suggestive of a possible phlegmon, measuring about 5.9 cm in largest dimension. There is also gas associated in the scrotal wall, which could be secondary to the patient's previous I and D or possible Ubaldo gangrene. ASSESSMENT AND PLAN: A 40-year-old male with scrotal abscess status post incision and drainage with a new phlegmon, which appears to have ruptured and spontaneously drained on its own. Based on the patient's history, his white count is decreased. Based on his physical exam, there is no strong evidence for Ubaldo gangrene at this time. With decreased pain, good cap refill, no evidence of crepitus, I do not think this patient has any kind of necrotizing fasciitis at the current time. I do not think that he needs any further surgical intervention since he spontaneously drained his phlegmon. He needs to continue on antibiotics. I do think that his scrotal edema and infection will significantly improve with the wound VAC if possible if the patient to be set up with a wound VAC both for inpatient and for outpatient purposes. This would greatly expedite his clinical recovery both from an edema standpoint as well as removal of the infection. I will make an order to see if this can be done through the wound care team. Dr. Doss will be resuming care tomorrow and I will turn the case back over to him. Job ID: [id number]
--- NOTE | 2020-02-22 17:46 | PDOC.HOSPP ---
- Subjective Encounter Date: 02/22/20 Encounter Time: 10:00 Subjective: Patient seen and examined for sepsis due to scrotal cellulitis/abscess. Pain controlled. Denies any nausea, vomiting or fever. - Objective Vital Signs & Weight: Vital Signs (12 hours) Temp Pulse Resp BP Pulse Ox 02/22/20 16:37 76 02/22/20 16:00 97.7 F 69 16 127/81 97 02/22/20 12:00 97.7 F 76 18 141/83 H 97 02/22/20 07:21 97.7 F 76 20 123/76 97 Weight Admit Weight 377 lb Weight 376 lb 15.847 oz I&O: 02/21/20 02/22/20 02/23/20 06:59 06:59 06:59 Intake Total 2009 2449 Balance 2009 2449 Result Diagrams: 02/22/20 05:59 02/22/20 05:59 Hospitalist ROS - Review of Systems Respiratory: denies: cough, dry, shortness of breath, hemoptysis, SOB with excertion, pleuritic pain, sputum, wheezing, other Cardiovascular: denies: chest pain, palpitations, orthopnea, paroxysmal noc. dyspnea, edema, light headedness, other - Medication Medications: Active Medications Generic Name Dose Route Start Last Admin Trade Name Freq PRN Reason Stop Dose Admin Hydrocodone Bitart/Acetaminophen 1 tab 02/17/20 01:27 02/22/20 09:43 Hydrocodone/Acetaminophen 5/325 Mg Tablet PO 1 tab Q4H PRN Administration Moderate Pain (4-6) Enoxaparin Sodium 40 mg 02/17/20 09:00 02/22/20 09:41 Enoxaparin Sodium 40 Mg/0.4 Ml Syringe SC 40 mg 0900 SHEREE Administration Famotidine 20 mg 02/19/20 09:00 02/22/20 09:41 Famotidine 20 Mg Tab PO 20 mg BID SHEREE Administration Cefazolin Sodium/Dextrose 2 gm 50 mls @ 100 mls/hr 02/21/20 17:00 02/22/20 16:36 / Device IVPB 50 mls 0100,0900,1700 SHEREE Administration Ibuprofen 400 mg 02/17/20 21:00 02/22/20 14:54 Ibuprofen 200 Mg Tab PO 400 mg TID SHEREE Administration Metronidazole 500 mg 02/21/20 21:00 02/22/20 14:54 Metronidazole 500 Mg Tab PO 500 mg TID SHEREE Administration Morphine Sulfate 2 mg 02/18/20 07:29 02/22/20 06:53 Morphine 2 Mg/Ml Vial SLOW IVP 02/23/20 07:30 2 mg Q4H PRN Administration Severe Pain (7-10) Senna/Docusate Sodium 2 tab 02/17/20 21:00 02/22/20 09:42 Senokot S 8.6-50 Mg Tab PO Not Given BID SHEREE - Exam General Appearance: NAD Heart: RRR, no gallops Respiratory: no wheezes, no ronchi Gastrointestinal: non-tender, non-distended, normal bowel sounds Extremities: no cyanosis, no clubbing Neurological: no new deficit Hosp A/P - Plan DVT proph w/lovenox, DVT proph w/SCDs 40-year-old male with obesity and borderline diabetes presented with painful swelling of his scrotum with associated fever and chills of 2 days duration.. Ultrasound was negative for torsion. His work-up was consistent with severe sepsis due to scrotal cellulitis with abscess. Patient was evaluated by infectious disease and urology. He underwent incision and drainage of the scrotal abscess on 02/17. Also had MARY on admission. #Severe sepsis due to scrotal cellulitis with Staphylococcus abscess status post incision and drainage (02/16)slowly improving. Initially started on vancomycin and meropenem --> now on Ancef with oral Flagyl #Acute pain secondary to above. #Morbid obesity with a BMI 51.1 #Borderline diabetes -A1c 5.3 #MARY due to sepsisimproving #DVT prophylaxis Plan: Continue IV Ancef with Flagyl. Continue wound care. Urology following. Continue to monitor white cell counts. Continue wound care. Ambulate as tolerated. Pain control. Continue other medications as above
[2020-02-23] MEDS: CEFAZOLIN 2 GM in Premix Bag 1 BAG IVPB SCH ×3 (02:15→16:37)
[2020-02-23 06:20] LABS: #Basophils 0.1 thou/uL (0.0-0.2); #Eosinphils 0.5 thou/uL (0.0-0.7); #Monocytes 0.9 thou/uL (0.11-0.59); #Neutrophils 9.8 thou/uL (1.40-6.50); %Basophils 0.5 % (0.0-1.0); %Eosinophils 3.6 % (0.0-10.0); %Lymphocytes 15.2 % (21.0-51.0); %Monocytes 6.9 % (0.0-10.0); %Neutrophils 73.8 % (42.0-75.0); Hemoglobin 13.1 g/dL (14.0-18.0); Mean Corpuscular HGB CONC 33.2 g/dL (32.0-36.0); Mean Corpuscular Volume 93.3 fL (78.0-98.0); Mean Platelet Volume 7.6 fL (7.4-10.4); Platelet Count 418 thou/uL (130-400); RBC Distribution Width 12.2 % (11.5-14.5); Red Blood Cell (RBC) Count 4.22 mill/uL (4.70-6.10); White Blood Cell (WBC) Count 13.2 thou/uL (4.8-10.8)
[2020-02-23 06:43] LABS: Anion Gap 10 mmol/L (10-20); BUN (Urea Nitrogen) 15 mg/dL (8.9-20.6); Calc. Creatinine Clearance 284 mL/min (70-130); Calcium 8.5 mg/dL (7.8-10.44); Carbon Dioxide 27 mmol/L (22-29); Chloride 105 mmol/L (98-107); Estimated GFR-MDRD Greater than 90; Glucose 98 mg/dL (70-105); Potassium 4.2 mmol/L (3.5-5.1); Sodium 138 mmol/L (136-145)
--- NOTE | 2020-02-23 07:49 | PDOC.HOSPP ---
- Subjective Encounter Date: 02/23/20 Encounter Time: 07:47 Subjective: minimal discomfort, no fever - Objective Vital Signs & Weight: Vital Signs (12 hours) Temp Pulse Resp BP Pulse Ox 02/22/20 20:00 98.3 F 70 18 118/70 97 Weight Admit Weight 377 lb Weight 376 lb 15.847 oz I&O: 02/22/20 02/23/20 02/24/20 06:59 06:59 06:59 Intake Total 2450 Balance 2450 Result Diagrams: 02/23/20 06:00 02/23/20 06:00 Hospitalist ROS - Medication Medications: Active Medications Generic Name Dose Route Start Last Admin Trade Name Freq PRN Reason Stop Dose Admin Hydrocodone Bitart/Acetaminophen 1 tab 02/17/20 01:27 02/22/20 09:43 Hydrocodone/Acetaminophen 5/325 Mg Tablet PO 1 tab Q4H PRN Administration Moderate Pain (4-6) Enoxaparin Sodium 40 mg 02/17/20 09:00 02/22/20 09:41 Enoxaparin Sodium 40 Mg/0.4 Ml Syringe SC 40 mg 0900 SHEREE Administration Famotidine 20 mg 02/19/20 09:00 02/22/20 21:24 Famotidine 20 Mg Tab PO 20 mg BID SHEREE Administration Cefazolin Sodium/Dextrose 2 gm 50 mls @ 100 mls/hr 02/21/20 17:00 02/23/20 02:15 / Device IVPB 50 mls 0100,0900,1700 SHEREE Administration Ibuprofen 400 mg 02/17/20 21:00 02/22/20 21:24 Ibuprofen 200 Mg Tab PO 400 mg TID SHEREE Administration Metronidazole 500 mg 02/21/20 21:00 02/22/20 21:24 Metronidazole 500 Mg Tab PO 500 mg TID SHEREE Administration Senna/Docusate Sodium 2 tab 02/17/20 21:00 02/22/20 21:24 Senokot S 8.6-50 Mg Tab PO Not Given BID SHEREE - Exam General Appearance: awake alert Neck: no JVD Heart: RRR, no murmur Respiratory: CTAB Gastrointestinal: soft, non-distended, normal bowel sounds Extremities: no edema Hosp A/P (1) Scrotal abscess Code(s): N49.2 - INFLAMMATORY DISORDERS OF SCROTUM Status: Acute (2) Obesity Code(s): E66.9 - OBESITY, UNSPECIFIED Status: Acute Qualifiers: Obesity type: due to excess calories Body mass index: unspecified BMI (3) Acute renal failure Status: Resolved Qualifiers: Acute renal failure type: unspecified Qualified Code(s): N17.9 - Acute kidney failure, unspecified (4) Sepsis Code(s): A41.9 - SEPSIS, UNSPECIFIED ORGANISM Status: Acute Qualifiers: Sepsis type: methicillin susceptible Staphylococcus aureus Sepsis acute organ dysfunction status: with acute organ dysfunction Severe sepsis acute organ dysfunction type: acute renal failure Acute renal failure type: unspecified Severe sepsis shock status: without septic shock Qualified Code(s): A41.01 - Sepsis due to Methicillin susceptible Staphylococcus aureus; R65.20 - Severe sepsis without septic shock; N17.9 - Acute kidney failure, unspecified - Plan cont iv antibx, wound care, discuss with
[2020-02-23] MEDS: Enoxaparin Sodium 40 MG/0.4 ML SYRINGE SC SCH (08:20)
[2020-02-23] MEDS: Ibuprofen 200 MG TAB PO SCH ×3 (08:20→20:35)
[2020-02-23] MEDS: Senokot S 8.6-50 MG TAB PO SCH ×2 (08:20→20:36)
[2020-02-23] MEDS: Famotidine 20 MG TAB PO SCH ×3 (08:20→20:36)
[2020-02-23] MEDS: metroNIDAZOLE 500 MG TAB PO SCH ×3 (08:21→20:35)
[2020-02-23] MEDS: Morphine 2 MG/ML VIAL SLOW IVP PRN (10:02)
--- NOTE | 2020-02-23 17:26 | PRG ---
DATE OF SERVICE: 02/23/2020 SUBJECTIVE: The patient continues to improve. He noticed an area of drainage in the anterior aspect of the scrotal skin. No respiratory symptoms. No abdominal pain or diarrhea. Voiding without difficulty. OBJECTIVE: VITAL SIGNS: He has been afebrile for a long time now. Other vital signs are normal. LUNGS: Clear. HEART: S1, S2. Regular rate. ABDOMEN: Soft. Not distended. GENITOURINARY: Scrotum is much reduced in size, but still with very prominent induration throughout the areas of I and D in the posterior scrotal area, and in the anterior aspect of the scrotum, there is irregular-shaped area of superficial skin necrosis kind of measuring about 1.5 cm. LABORATORY DATA: White cell count is down to 13.2, hemoglobin 13, platelets 418. Urinary creatinine is 0.82. Microbiology with Staph aureus, Finegoldia magna, and Bacteroides. He is currently receiving Flagyl and cefazolin. ASSESSMENT AND DISCUSSION: 1. Type 2 diabetes. 2. Scrotal abscess with cellulitis. 3. Polymicrobial. 4. Still quite pronounced inflammatory process, but marked reduction from admission. Options for management would include IV Rocephin plus oral Keflex plus Flagyl for protracted period of time. I think we can try Keflex 500 four times daily plus oral Flagyl 500 three times daily and give him at least 4 weeks of treatment. Follow up in the outpatient setting. Job ID: [id number]
[2020-02-24] MEDS: CEFAZOLIN 2 GM in Premix Bag 1 BAG IVPB SCH ×2 (02:11→08:56)
[2020-02-24 07:55] VITALS: BP 118/75
[2020-02-24 07:58] VITALS: TEMP 98.4
[2020-02-24] MEDS: Enoxaparin Sodium 40 MG/0.4 ML SYRINGE SC SCH (08:56)
[2020-02-24] MEDS: Ibuprofen 200 MG TAB PO SCH (08:59)
[2020-02-24] MEDS: metroNIDAZOLE 500 MG TAB PO SCH (08:59)
[2020-02-24] MEDS: Senokot S 8.6-50 MG TAB PO SCH (08:59)
--- NOTE | 2020-02-24 11:44 | PDOC.HOSPP ---
- Objective Vital Signs & Weight: Vital Signs (12 hours) Temp Pulse Resp BP Pulse Ox 02/24/20 08:00 97 02/24/20 07:53 98.4 F 66 16 118/75 97 Weight Admit Weight 377 lb Weight 376 lb 15.847 oz I&O: 02/23/20 02/24/20 02/25/20 06:59 06:59 06:59 Intake Total 720 360 Balance 720 360 Result Diagrams: 02/23/20 06:00 02/23/20 06:00 Hospitalist ROS - Medication Medications: Active Medications Generic Name Dose Route Start Last Admin Trade Name Freq PRN Reason Stop Dose Admin Acetaminophen/Codeine Phosphate 1 tab 02/17/20 17:40 02/24/20 10:27 Acetaminophen/Codeine 30-300mg Tablet PO 1 tab Q4H PRN Administration Moderate Pain (4-6) Hydrocodone Bitart/Acetaminophen 1 tab 02/17/20 01:27 02/22/20 09:43 Hydrocodone/Acetaminophen 5/325 Mg Tablet PO 1 tab Q4H PRN Administration Moderate Pain (4-6) Enoxaparin Sodium 40 mg 02/17/20 09:00 02/24/20 08:56 Enoxaparin Sodium 40 Mg/0.4 Ml Syringe SC 40 mg 0900 SHEREE Administration Famotidine 20 mg 02/19/20 09:00 02/23/20 20:36 Famotidine 20 Mg Tab PO 20 mg BID SHEREE Administration Cefazolin Sodium/Dextrose 2 gm 50 mls @ 100 mls/hr 02/21/20 17:00 02/24/20 08:56 / Device IVPB 50 mls 0100,0900,1700 SHEREE Administration Ibuprofen 400 mg 02/17/20 21:00 02/24/20 08:59 Ibuprofen 200 Mg Tab PO 400 mg TID SHEREE Administration Metronidazole 500 mg 02/21/20 21:00 02/24/20 08:59 Metronidazole 500 Mg Tab PO 500 mg TID SHEREE Administration Senna/Docusate Sodium 2 tab 02/17/20 21:00 02/24/20 08:59 Senokot S 8.6-50 Mg Tab PO 2 tab BID SHEREE Administration Hosp A/P (1) Scrotal abscess Code(s): N49.2 - INFLAMMATORY DISORDERS OF SCROTUM Status: Acute (2) Obesity Code(s): E66.9 - OBESITY, UNSPECIFIED Status: Acute Qualifiers: Obesity type: due to excess calories Body mass index: unspecified BMI (3) Acute renal failure Status: Resolved Qualifiers: Acute renal failure type: unspecified Qualified Code(s): N17.9 - Acute kidney failure, unspecified (4) Sepsis Code(s): A41.9 - SEPSIS, UNSPECIFIED ORGANISM Status: Acute Qualifiers: Sepsis type: methicillin susceptible Staphylococcus aureus Sepsis acute organ dysfunction status: with acute organ dysfunction Severe sepsis acute organ dysfunction type: acute renal failure Acute renal failure type: unspecified Severe sepsis shock status: without septic shock Qualified Code(s): A41.01 - Sepsis due to Methicillin susceptible Staphylococcus aureus; R65.20 - Severe sepsis without septic shock; N17.9 - Acute kidney failure, unspecified - Plan cont iv antibx, wound care, discuss with
--- NOTE | 2020-02-24 12:34 | DIS ---
DATE OF ADMISSION: 02/17/2020 DATE OF DISCHARGE: 02/24/2020 DISPOSITION: Discharged to home. PRIMARY CARE PROVIDER: None. FINAL DIAGNOSES: Cellulitis, abscess disorder of the scrotum; sepsis syndrome; acute renal failure, resolved; obesity. DISCHARGE MEDICATIONS: 1. Cephalexin 500 mg p.o. q.i.d. for one month. 2. Flagyl 500 mg p.o. t.i.d. for a month. DIET: As tolerated. CODE STATUS: Full. ALLERGIES: NONE. HOSPITAL COURSE: The patient admitted to the Hospitalist Service through the emergency room with painful swell of scrotum. He was placed on IV cefepime and vancomycin in the emergency room. Urology, Dr. Gómez Doss and Infectious Disease Dr. Og Freitas were consulted. Initial laboratory; creatinine 1.51, which resolved down to 0.79. Blood sugars always unremarkable. Renal function unremarkable. Electrolytes were unremarkable. Initial white cell count was 31,000 with marked left shift. This has come down to 13.2 with no left shift, hemoglobin has ranged from 12.7 to 14.1, currently in the [address] Doss recommended broad-spectrum antibiotics, noted draining purulent fluid. It was incised with a #10 blade with copious drainage. The patient had no formal procedures done in the operating room. Dr. Freitas thought the patient did not have Ubaldo syndrome, which was worried. He continued antibiotics. Abscess cultures grew Staph aureus, MSSA, Bacteroides, and Finegoldia magna. Antibiotics were switched to Ancef plus Flagyl. The patient has been instructed in Wound Care. He is afebrile. He is comfortable with going home. He is being discharged on the appropriate antibiotics as described earlier. He has been asked to find a PCP for followup in 7 days. We will ask Dr. Freitas to follow him up in 4 weeks. Job ID: [id number] [facility]
== END 2020-02-24 14:35 | disposition home or self-care (01) | DRG 872 ==
LOC: ERS 21:01 → T4-A 02-17 00:42
PROVIDERS: ADMIT Internal Medicine; ATTEND Internal Medicine
PROC: 0V95XZZ Drainage of Scrotum, External Approach (ICD-10-PCS; principal; 2020-02-17)
DX: A41.9 Sepsis, unspecified organism (principal); N17.9 Acute kidney failure, unspecified; Z68.43 Body mass index [BMI] 50.0-59.9, adult; N49.2 Inflammatory disorders of scrotum; E11.9 Type 2 diabetes mellitus without complications; E66.01 Morbid (severe) obesity due to excess calories; R65.20 Severe sepsis without septic shock; Z20.828 Contact with and (suspected) exposure to other viral communicable diseases; Z79.51 Long term (current) use of inhaled steroids
CPT/HCPCS: 36415; 76870; 80048; 80053; 80202; 81003; 81015; 83036; 83605; 85025; 86140; 87040; 87070; 87076; 87077; 87186; 87205; 87635; 93976; 96365; 96367; J0690; J0692; J1650; J1940; J2185; J2270; J3370; J7030; U0003

== ENCOUNTER 2021-10-07 04:42 | Emergency (ER) | payer SELFPAY ==
[2021-10-07 05:43] LABS: #Eosinphils 0.4 thou/uL (0.0-0.7); #Lymphocytes 2.6 thou/uL (1.20-3.40); #Monocytes 0.6 thou/uL (0.11-0.59); #Neutrophils 5.2 thou/uL (1.40-6.50); %Basophils 0.5 % (0.0-1.0); %Lymphocytes 29.7 % (21.0-51.0); %Monocytes 6.3 % (0.0-10.0); %Neutrophils 58.4 % (42.0-75.0); Hemoglobin 14.7 g/dL (14.0-18.0); Mean Corpuscular HGB CONC 33.1 g/dL (32.0-36.0); Mean Corpuscular Hemoglobin 31.7 pg (27.0-31.0); Mean Corpuscular Volume 95.8 fL (78.0-98.0); Mean Platelet Volume 8.8 fL (7.4-10.4); Platelet Count 204 thou/uL (130-400); RBC Distribution Width 12.1 % (11.5-14.5); Red Blood Cell (RBC) Count 4.64 mill/uL (4.70-6.10); White Blood Cell (WBC) Count 8.8 thou/uL (4.8-10.8)
[2021-10-07 05:58] LABS: ALT (SGPT) 36 U/L (8-55); AST (SGOT) 17 U/L (5-34); Albumin 3.8 g/dL (3.5-5.0); Alkaline Phosphatase 74 U/L (40-110); Anion Gap 12 mmol/L (10-20); BUN (Urea Nitrogen) 14 mg/dL (8.9-20.6); Bilirubin, Total 0.4 mg/dL (0.2-1.2); Calc. Creatinine Clearance 0 mL/min (70-130); Carbon Dioxide 27 mmol/L (22-29); Chloride 104 mmol/L (98-107); Globulin 3.5 g/dL (2.4-3.5); Glucose 103 mg/dL (70-105); Potassium 3.8 mmol/L (3.5-5.1); Protein, Total 7.3 g/dL (6.0-8.3); Sodium 139 mmol/L (136-145)
[2021-10-07 08:01] LABS: Troponin I Less than 0.010 ng/mL (< 0.028)
== END 2021-10-07 08:38 | disposition home or self-care (01) ==
LOC: ERS 04:42
DX: G62.9 Polyneuropathy, unspecified (principal); R07.89 Other chest pain; R00.1 Bradycardia, unspecified
CPT/HCPCS: 36415; 71045; 80053; 84484; 85025; 93005